=== PATIENT | male | born 1945 | race Caucasian/White ===

== ENCOUNTER 2022-09-11 22:00 | Emergency (ER) | payer BC, OTHER ==
[~2022-09-11] VITALS: Ht 172.7 cm; Wt 99.8 kg
[~2022-09-11 22:00] MED LIST: HTN
[2022-09-11 22:05] VITALS: BP_SYST 157
--- NOTE | 2022-09-11 22:15 | NUR ---
Placed in room 5 . Placed on cafeteria monitor, blood pressure machine and pulse oximeter. To gown for exam. Side rails up. Report given to FOX SEGURA(REG).
--- NOTE | 2022-09-11 22:30 | NUR ---
MD WINTER AT BEDSIDE FOR MSE. PT VSS. NAD NOTED. ONSET X 3 HOURS, RUQ ABD PAIN WITH NAUSEA. AT BEDSIDE. WILL CONT TO MONITOR PT.
[2022-09-11] MEDS ORDERED: MORPHINE 4 MG INJ. 4 MG/ML VIAL IVP ONE (23:00)
[2022-09-11] MEDS ORDERED: ONDANSETRON HCL 4 MG/2 ML VIAL IVP ONE (23:00)
[2022-09-11 23:01] LABS: BILIRUBIN,URINE NEGATIVE (NEGATIVE); CLARITY/URINE CLEAR (CLEAR); COLOR,URINE YELLOW (YELLOW); GLUCOSE,URINE NEGATIVE (NEGATIVE); KETONES,URINE 1+ (NEGATIVE); LEUKOCYTE ESTERASE ,URINE NEGATIVE (NEGATIVE); NITRITE, URINE NEGATIVE (NEGATIVE); PH,URINE 5.5 (5.0-8.0); PROTEIN URINE NEGATIVE (NEGATIVE); UROBILINOGEN,URINE 0.2 (0.2-1.0)
[2022-09-11 23:02] LABS: BLOOD, URINE TRACE (NEGATIVE)
[2022-09-11 23:07] LABS: BACTERIA,URINE RARE /HPF (None Seen); MUCUS,URINE None Seen /LPF (None Seen); RBC,URINE 0-3 /HPF (0-3); WBC,URINE NONE SEEN /HPF (0-3)
[2022-09-11 23:13] LABS: BASOPHILS % (AUTO) 0.6 % (0.0-2.0); EOSINOPHILS % (AUTO) 0.4 % (0.0-4.0); HEMATOCRIT 47.2 % (36-54); HEMOGLOBIN 15.9 g/dL (14.0-18.0); LYMPHOCYTES # (AUTO) 0.3 K/uL (1.0-5.5); LYMPHOCYTES % (AUTO) 4.3 % (20.5-51.5); MEAN CORPUSCULAR HEMOGLOBIN 33 pg (27-31); MEAN CORPUSCULAR HGB CONC 34 % (32-36); MEAN CORPUSCULAR VOLUME 97 fL (79.0-98.0); MONOCYTES # (AUTO) 0.6 K/uL (0.0-1.0); MONOCYTES % (AUTO) 7.5 % (1.7-9.3); NEUTROPHILS % (AUTO) 87.2 % (40.0-70.0); PLATELET COUNT (AUTO) 177 K/uL (130-430); RED BLOOD CELL COUNT(AUTO) 4.89 MIL/uL (4.2-6.2); RED CELL DISTRIBUTION WIDTH 14.4 % (9.0-15.0)
[2022-09-11 23:23] LABS: ANION GAP 10 (5-15); CALCIUM 9.7 mg/dL (8.4-11.0); CHLORIDE 102 mmol/L (98-107); GLUCOSE 173 mg/dL (70-99); UREA NITROGEN, BLOOD 14 mg/dL (8-21)
[2022-09-11] MEDS ORDERED: MORPHINE 4 MG INJ. 4 MG/ML VIAL IM ONE (23:30)
[2022-09-11] MEDS ORDERED: ONDANSETRON 4 MG ODT TAB PO ONE (23:30)
[2022-09-11 23:31] LABS: ALANINE AMINOTRANSFERASE 46 U/L (12-78); ASPARTATE AMINOTRANSFERASE 47 U/L (10-37); LIPASE 80 U/L (73-393); TOTAL BILIRUBIN 0.7 mg/dL (0.0-1.0)
[2022-09-12 01:00] VITALS: BP_SYST 131
--- NOTE | 2022-09-12 01:00 | NUR ---
Patient does not wish to proceed with medical care recommended by MD WINTER. Patient given information related to possible complications, up to and including , which could occur as a result of leaving hospital at this time. Patient verbalizes understanding of risks involved leaving against medical advice. Patient has signed AMA form.
== END 2022-09-12 01:00 | disposition left against medical advice (07) ==
LOC: SED 22:00
DX: K80.50 Calculus of bile duct without cholangitis or cholecystitis without obstruction (principal); R10.11 Right upper quadrant pain; R11.0 Nausea; I10 Essential (primary) hypertension; Z79.899 Other long term (current) drug therapy
CPT/HCPCS: 99285; 74176; 76705; 71045; 80053; 81000; 83690; 85025; 87040; 84484; 36415; 93005; 76376; 96372; 83605; Q0162; J2270